=== PATIENT | female | born 1945 | race Caucasian/White ===

== ENCOUNTER 2021-01-18 13:39 | Emergency (ER) | payer MEDICARE ==
[2021-01-18 14:23] LABS: HEMOGLOBIN 13.6 gm/dl (12.3-15.3); RED BLOOD COUNT 4.35 M/UL (4.00-5.10); WHITE BLOOD COUNT 4.8 K/UL (4.5-11.0)
[2021-01-18 14:50] LABS: BUN/CREATININE RATIO 18 (0-10)
== END 2021-01-18 16:14 | disposition home or self-care (01) ==
LOC: ER1 13:39
PROVIDERS: Emergency Medicine
DX: I10 Essential (primary) hypertension (principal); E78.5 Hyperlipidemia, unspecified
CPT/HCPCS: 70450; 80053; 81001; 82550; 82553; 83874; 84484; 85025; 93005; 99284